=== PATIENT | female | born 1990 ===

== ENCOUNTER → 2025-02-14 | Outpatient (CLI) | payer SELFPAY ==
[2025-02-16 23:45] LABS: QUANTIFERON NIL 0.04 IU/mL; QUANTIFERON PLUS TB1 MINUS NIL 0.04 IU/mL (<=0.34); QUANTIFERON PLUS TB2 MINUS NIL 0.02 IU/mL (<=0.34)
== END ==
LOC: LAB SHORT 18:49 → LAB 18:49
PROVIDERS: Family Medicine
DX: Z11.1 Encounter for screening for respiratory tuberculosis (principal)
CPT/HCPCS: 86480